=== PATIENT | male | born 1995 | race Two or more races ===

== ENCOUNTER 2024-12-20 10:02 | Inpatient (IN) | payer OTHER ==
[~2024-12-20] VITALS: Ht 165.1 cm; Wt 81.6 kg
[2024-12-20] MEDS ORDERED: HUMIRA(CF)40 MG/0.4 SQ (10:44)
[2024-12-20] MEDS ORDERED: 0.9 % SODIUM CHLORIDE 1,000 ML IV STA (10:52)
[2024-12-20 11:18] LABS: BASO % 0.4 % (0.1-1.2); EOS # 0.09 (0.04-0.54); EOS % 1.1 % (0.7-7.0); LYMPH # 2.86 (1.18-3.74); LYMPH % 36.2 % (19.3-53.1); MEAN PLATELET VOLUME 9.60 fl (9.4-12.4); MONO # 0.60 (0.24-0.82); MONO % 7.6 % (4.7-12.5); NEUT # 4.31 (1.56-6.13); NEUT % 54.6 % (34.0-71.1); RED CELL DISTRIBUTION WIDTH 12.6 % (11.6-14.4)
[2024-12-20 11:39] LABS: URINE APPEARANCE Clear; URINE BILIRRUBIN Negative (NEGATIVE); URINE BLOOD Negative; URINE COLOR Yellow; URINE GLUCOSE Negative (NEGATIVE); URINE KETONE Trace (NEGATIVE); URINE LEUKOCYTE Negative; URINE NITRATE Negative; URINE PROTEIN Negative (NEGATIVE); URINE UROBILINOGEN 0.2 E.U./dl
[2024-12-20 11:43] LABS: URINE BACTERIA 10.7 uL (0.0-1933); URINE EPITHELIAL CELLS 3.2 uL (0.0-38.8); URINE RBC 6.5 uL (0.0-20.8); URINE WBC 5.0 uL (0.0-23.2)
[2024-12-20 11:44] LABS: BUN CREA RATIO 13.0 (7.0-25.0); CREATININE SERUM 1.05 mg/dL (0.70-1.30); GFR 84.73; GLUCOSE FASTING 108.0 mg/dL (65-100); OSMOLALITY SERUM 286.0 MOSM/KG (275-295)
[2024-12-20 12:00] LABS: URINE CAST 0.14 uL (0.0-1.40)
[2024-12-20] MEDS ORDERED: METHYLPREDNISOLONE SOD SUCC 125 MG VIAL IV ONE (16:30)
[2024-12-20] MEDS ORDERED: CIPROFLOXACIN IN 5 % DEXTROSE 400 MG/200 ML PIGGYBAG IV ONE (16:30)
[2024-12-20 17:21] LABS: BILIRUBIN TOTAL 0.4 mg/dL (0.3-1.2); BILIRUBIN,CONJUGATED 0.12 mg/dL (0.0-0.2)
[2024-12-20] MEDS ORDERED: CEFTRIAXONE SODIUM 1,000 MG VIAL IM ONE (18:00)
[2024-12-20] MEDS ORDERED: KETOROLAC TROMETHAMINE 30 MG VIAL IM ONE (18:00)
[2024-12-20] MEDS ORDERED: PANTOPRAZOLE SODIUM 40 MG in 0.9 % SODIUM CHLORIDE 8 ML IV PUSH SCH (19:46)
[2024-12-20] MEDS ORDERED: METHYLPREDNISOLONE SOD SUCC 40 MG VIAL IV SCH (20:05)
[2024-12-20] MEDS ORDERED: 0.9 % SODIUM CHLORIDE 1,000 ML IV SCH (20:15)
[2024-12-20] MEDS ORDERED: ACETAMINOPHEN 325 MG TABLET PO PRN (20:15)
[2024-12-20] MEDS ORDERED: CIPROFLOXACIN IN 5 % DEXTROSE 200 ML IV SCH (21:00)
[2024-12-20 22:24] LABS: INR 1.13
[2024-12-21 02:00] VITALS: BP 131/79; O2SAT 97
[2024-12-21 08:00] VITALS: BP 128/69; O2SAT 97
[2024-12-21 16:00] VITALS: BP 127/71; O2SAT 96
[2024-12-22 00:53] VITALS: BP 102/46; O2SAT 96
[2024-12-22 09:28] VITALS: BP 117/71; O2SAT 98
[2024-12-22 16:24] VITALS: BP 119/62; O2SAT 95
[2024-12-23 01:24] VITALS: BP 109/70; O2SAT 100
[2024-12-23 07:24] LABS: ALT/SGPT 26.0 U/L (12-78); AST/SGOT 27.0 U/L (15-37); BILIRUBIN TOTAL 0.93 mg/dL (0.3-1.2); BUN CREA RATIO 17.0 (7.0-25.0); CREATININE SERUM 0.83 mg/dL (0.70-1.30); GFR 111.14; GLOBULINA 3.6 G/DL (2.4-3.5); GLUCOSE FASTING 86.0 mg/dL (65-100); OSMOLALITY SERUM 281.0 MOSM/KG (275-295)
[2024-12-23 08:00] VITALS: BP 143/85; O2SAT 98
[2024-12-23 15:29] LABS: BASO % 0.1 % (0.1-1.2); EOS # 0.00 (0.04-0.54); EOS % 0.0 % (0.7-7.0); LYMPH # 1.56 (1.18-3.74); LYMPH % 17.4 % (19.3-53.1); MEAN PLATELET VOLUME 9.30 fl (9.4-12.4); MONO # 0.12 (0.24-0.82); MONO % 1.3 % (4.7-12.5); NEUT # 7.25 (1.56-6.13); NEUT % 81.0 % (34.0-71.1); RED CELL DISTRIBUTION WIDTH 12.5 % (11.6-14.4)
[2024-12-23 17:28] VITALS: BP 124/72; O2SAT 96
[2024-12-23] MEDS ORDERED: LIDOCAINE HCL 1%/EPINEPHRINE 20ML VIAL IJ ONE (17:45)
[2024-12-23] MEDS ORDERED: BUPIVACAINE HCL 30 ML VIAL IJ ONE (17:45)
[2024-12-23] MEDS ORDERED: SUGAMMADEX SODIUM 200 MG/2 ML VIAL IV ONE (19:00)
[2024-12-23] MEDS ORDERED: MORPHINE SULFATE 4 MG/ML VIAL IV ONE ×2 (19:30→20:15)
[2024-12-23 21:16] VITALS: BP 118/73; O2SAT 96
[2024-12-24 00:32] VITALS: BP 100/61; O2SAT 98
[2024-12-24] MEDS ORDERED: DIPHENHYDRAMINE HCL 50 MG/ML VIAL 1ML IV STA (01:15)
[2024-12-24] MEDS ORDERED: DIPHENHYDRAMINE HCL 50 MG/ML VIAL 1ML IV PRN (01:15)
[2024-12-24 08:00] VITALS: BP 119/71; O2SAT 97
[2024-12-24 16:41] VITALS: BP 119/76; O2SAT 98
== END 2024-12-24 16:56 | disposition home or self-care (01) | DRG 418 ==
LOC: ER 10:09 → SURH 20:00
PROVIDERS: Emergency Medicine; General Practice; Internal Medicine Infectious Disease; Specialist; ADMIT Internal Medicine; ATTEND Internal Medicine
PROC: BW21YZZ Computerized Tomography (CT Scan) of Abdomen and Pelvis using Other Contrast (ICD-10-PCS; 2024-12-20)
PROC: BT4JZZZ Ultrasonography of Kidneys and Bladder (ICD-10-PCS; 2024-12-20)
PROC: CF141ZZ Planar Nuclear Medicine Imaging of Gallbladder using Technetium 99m (Tc-99m) (ICD-10-PCS; 2024-12-22)
PROC: 0FT44ZZ Resection of Gallbladder, Percutaneous Endoscopic Approach (ICD-10-PCS; principal; 2024-12-23 17:00)
DX: K80.10 Calculus of gallbladder with chronic cholecystitis without obstruction (principal); K50.90 Crohn's disease, unspecified, without complications; K60.30 Anal fistula, unspecified